=== PATIENT | female | born 1975 | race Caucasian/White ===

== ENCOUNTER 2017-11-20 14:46 | Emergency (ER) | payer OTHER ==
--- NOTE | 2017-11-20 15:06 | ERPHSYRPT ---
- History of Present Illness Time Seen by Provider: 11/20/17 14:57 Source: patient Exam Limitations: no limitations Physician History: 42-year-old white female with history of chronic back pain and neuropathy arrives with complaint of no bowel movement for 2 weeks. She has not had any vomiting she states she has been nauseous no melena no hematochezia no fevers. Past medical history includes chronic back pain, neuropathy. Past surgical history includes appendectomy, partial hysterectomy, C-sections. Patient states she has been on Vicodin for dental pain. Timing/Duration: week(s) (2 weeks) Severity: moderate Modifying Factors: Improves With: medication (patient is on Vicodin) Associated Symptoms: nausea, other (Constipation), No vomiting, No abdominal pain, No shortness of breath, No heartburn, No diaphoresis, No cough, No chills , No chest pain, No fever, No headaches, No loss of appetite, No malaise, No rash, No syncope, No seizure, No weakness Allergies/Adverse Reactions: No Known Drug Allergies Allergy (Unverified 11/20/17 15:14) Home Medications: Baclofen [Baclofen] 10 mg PO TID 11/20/17 [History] Bupropion HCl [Bupropion HCl Sr] 150 mg PO DAILY 11/20/17 [History] Gabapentin [Gabapentin] 300 mg PO TID 11/20/17 [History] Hydrocodone/Acetaminophen [Hydrocodone-Acetamin 5-325 mg] 5 mg PO Q6HPRN PRN 09/04 [History] Naratriptan HCl [Amerge] 2.5 mg PO UD 11/20/17 [History] Sulfamethoxazole/Trimethoprim [Sulfamethoxazole-Tmp Ds Tablet] 1 ea PO BID 11/20 [History] - Review of Systems Constitutional: No Fever, No Chills Eyes: No Symptoms Ears, Nose, & Throat: No Symptoms Respiratory: No Cough, No Dyspnea Cardiac: No Chest Pain, No Edema, No Syncope Abdominal/Gastrointestinal: Abdominal Pain, Nausea, Constipation, No Vomiting, No Diarrhea (Will visual), No Hematemesis, No Hematochezia, No Melena, No Dysphagia, No Appetite Changes Genitourinary Symptoms: No Dysuria Musculoskeletal: No Back Pain, No Neck Pain Skin: No No Symptoms, No Rash Neurological: No Dizziness, No Focal Weakness, No Sensory Changes Psychological: No Symptoms Endocrine: No Symptoms All Other Systems: Reviewed and Negative - Female History Hx Now: No - Nursing Vital Signs Nursing Vital Signs: Initial Vital Signs Temperature 98.4 F 11/20/17 14:59 Pulse Rate 93 H 11/20/17 14:59 Respiratory Rate 16 11/20/17 14:59 Blood Pressure 135/86 11/20/17 14:59 O2 Sat by Pulse Oximetry 98 11/20/17 14:59 Pain Scale Pain Intensity 0 - Physical Exam General Appearance: no apparent distress, alert Eye Exam: PERRL/EOMI, eyes nml inspection Ears, Nose, Throat Exam: normal ENT inspection, TMs normal, pharynx normal, moist mucous membranes Neck Exam: normal inspection, non-tender, supple, full range of motion Respiratory Exam: normal breath sounds, lungs clear, No respiratory distress Cardiovascular Exam: regular rate/rhythm, normal heart sounds, normal peripheral pulses Gastrointestinal/Abdomen Exam: soft, normal bowel sounds, distention, No tenderness, No mass, No guarding, No ecchymosis, No pulsatile mass, No rebound, No hernia, No hepatomegaly, No organomegaly, No splenomegaly Back Exam: normal inspection, normal range of motion, No CVA tenderness, No vertebral tenderness Extremity Exam: normal inspection, normal range of motion, pelvis stable Neurologic Exam: alert, oriented x 3, cooperative, home stager II-XII nml as tested, normal mood/affect, nml cerebellar function, nml station & gait, sensation nml, No motor deficits Skin Exam: normal color, warm, dry, No rash Lymphatic Exam: No adenopathy - Course Nursing assessment & vital signs reviewed: Yes - Radiology Exams Abdomen X-ray Interpretation: Interpreted by me (3 view abdomen: normal chest x ray, non obstructive bowel gas pattern, moderate fecal stasis.) Ordered Tests: Active Orders 24 hr Category Date Time Status OBSTR/ACUTE ABDOMEN SERIES Stat Exams 11/20/17 15:02 Taken AMYLASE Stat Lab 11/20/17 15:15 Completed CBC W DIFF Stat Lab 11/20/17 15:15 Completed CMP Stat Lab 11/20/17 15:15 Completed LIPASE Stat Lab 11/20/17 15:15 Completed Lab/Rad Data: Laboratory Result Diagrams 11/20/17 15:15 11/20/17 15:15 Laboratory Results 11/20/17 11/20/17 Range/Units 15:15 15:15 WBC 9.2 (4.0-10.5) K/mm3 RBC 4.71 (4.1-5.4) M/mm3 Hgb 15.3 (12.0-16.0) gm/dl Hct 46.0 (35-47) % MCV 97.7 (78-100) fl MCH 32.5 H (26-32) pg MCHC 33.3 (32-36) g/dl RDW 13.5 (11.5-14.0) % Plt Count 291 (150-450) K/mm3 MPV 11.6 H (6-9.5) fl Gran % 67.2 H (36.0-66.0) % Eos # (Auto) 0.26 (0-0.5) Absolute Lymphs (auto) 2.04 (1.0-4.6) Absolute Monos (auto) 0.71 (0.0-1.3) Lymphocytes % 22.1 L (24.0-44.0) % Monocytes % 7.7 (0.0-12.0) % Eosinophils % 2.8 (0.00-5.0) % Basophils % 0.2 (0.0-0.4) % Absolute Granulocytes 6.18 (1.4-6.9) Basophils # 0.02 (0-0.4) Sodium 137 (137-145) mmol/L Potassium 4.6 (3.5-5.1) mmol/L Chloride 103 (98-107) mmol/L Carbon Dioxide 27 (22-30) mmol/L Anion Gap 12.2 (5-15) MEQ/L BUN 12 (7-17) mg/dL Creatinine 0.86 (0.52-1.04) mg/dL Estimated GFR > 60.0 ML/MIN Glucose 98 (74-106) mg/dL Calcium 9.8 (8.4-10.2) mg/dL Total Bilirubin 0.60 (0.2-1.3) mg/dL AST 23 (14-36) U/L ALT 24 (0-35) U/L Alkaline Phosphatase 64 (38-126) U/L Serum Total Protein 7.9 (6.3-8.2) g/dL Albumin 4.5 (3.5-5.0) g/dL Amylase 50 (30-110) U/L Lipase 58 (23-300) U/L - Progress Progress: improved Progress Note: 11/20/17 16:54 42-year-old white female arrives with complaint no stool for 2 weeks. She does state she has chronic neuropathy she also states that she has recently taken Vicodin secondary to dental work. On physical examination the patient's abdomen is distended but soft there are positive bowel sounds. Rectal examination there is no palpable stool and no stool is obtained. Patient's mother tried giving the patient a fleets yesterday with no results. Abdominal series show normal chest and nonobstructive bowel pattern there is a moderate fecal stasis. Patient's CBC is essentially normal with a hemoglobin 15.3 hematocrit 46.0 white count 9.2 chemistry is within normal limits. Will plan to place patient on room air lacks one scoop in 8 ounces of water orally daily Will give patient a prescription for Dulcolax suppositories. Will place patient on clear fluids for 24-48 hours. Patient will need follow-up with her family doctor. - Departure Time of Disposition: 16:56 Departure Disposition: Home Clinical Impression: Constipation Qualifiers: Constipation type: unspecified constipation type Qualified Code(s): K59.00 - Constipation, unspecified Condition: Fair Critical Care Time: No Referrals: LIONEL AVILA [Primary Care Provider] - Instructions: Constipation, Adult (DC) Additional Instructions: Return home. Plenty of fluids clear fluids only 24-48 hours if abdominal pain or constipation. Miralax one scoop in 8 ounces of water orally daily. Dulcolax suppository one per rectum as needed for no stool in 48 hours. Follow-up with your family doctor. Return for acute distress or for severe symptoms.
[2017-11-20 15:22] LABS: BASOPHIL % 0.2 % (0.0-0.4); Basophil (Absolute #) 0.02 (0-0.4); Eosinophil % 2.8 % (0.00-5.0); Eosinophil (Absolute #) 0.26 (0-0.5); Granulocyte Absolute (ANC) 6.18 (1.4-6.9); Granulocytes % 67.2 % (36.0-66.0); Hemoglobin 15.3 gm/dl (12.0-16.0); Lymphocyte (Absolute #) 2.04 (1.0-4.6); Lymphocytes % 22.1 % (24.0-44.0); Mean Cell Volume 97.7 fl (78-100); Mean Corpuscular Hemoglobin 32.5 pg (26-32); Mean Corpuscular Hgb Concent. 33.3 g/dl (32-36); Mean Platelet Volume 11.6 fl (6-9.5); Monocyte (Absolute #) 0.71 (0.0-1.3); Monocytes % 7.7 % (0.0-12.0); Platelet Count 291 K/mm3 (150-450); Red Blood Count 4.71 M/mm3 (4.1-5.4); Red Cell Distribution Width 13.5 % (11.5-14.0); White Blood Count 9.2 K/mm3 (4.0-10.5)
[2017-11-20 15:35] LABS: ALBUMIN 4.5 g/dL (3.5-5.0); ALKALINE PHOSPHATASE 64 U/L (38-126); AMYLASE 50 U/L (30-110); ANION GAP 12.2 MEQ/L (5-15); BLOOD UREA NITROGEN 12 mg/dL (7-17); CHLORIDE 103 mmol/L (98-107); Calcium 9.8 mg/dL (8.4-10.2); Carbon Dioxide 27 mmol/L (22-30); Creatinine 1 0.86 mg/dL (0.52-1.04); Glucose 98 mg/dL (74-106); LIPASE 58 U/L (23-300); Potassium 4.6 mmol/L (3.5-5.1); SGOT/AST 23 U/L (14-36); SGPT/ALT 24 U/L (0-35); SODIUM 137 mmol/L (137-145); Total Protein 7.9 g/dL (6.3-8.2)
[2017-11-20 16:10] VITALS: BP 114/77; PULSE 77; O2SAT 99
--- NOTE | 2017-11-20 20:05 | XRAY ---
Indication: Constipation 2 weeks. Comparison: None 2 views of the abdomen nonacute and nonobstructed with mild diffuse scattered colonic fecal debris throughout and surgical clips projecting over the right pelvic inlet. Remaining solid organs and osseous structures are unremarkable. Single PA chest demonstrates normal heart, lungs, and bony thorax. Impression: Fecal stasis without obstruction. Normal 1 view chest.
== END 2017-11-20 17:14 | disposition home or self-care (01) ==
LOC: ED 14:46
DX: K59.00 Constipation, unspecified (principal); R11.0 Nausea; Z79.899 Other long term (current) drug therapy
CPT/HCPCS: 36415; 74022; 80053; 82150; 83690; 85025; 99284

== ENCOUNTER 2018-08-13 19:10 | Emergency (ER) | payer OTHER ==
[2018-08-13 19:25] VITALS: BP 150/101
[2018-08-13] MEDS ORDERED: Eye-Stream Solution ONE (19:28)
[2018-08-13] MEDS ORDERED: Fluor-I-Strip/Ful-Flo OP ONE ×2 (19:28→19:40)
[2018-08-13] MEDS ORDERED: TETRACAINE 0.5% STERI-UNIT SOL OP ONE (19:32)
[2018-08-13] MEDS ORDERED: Eye-Stream Solution OP ONE (19:39)
[2018-08-13] MEDS ORDERED: TETRACAINE 0.5% STERI-UNIT SOL OP STA (19:41)
[2018-08-13] MEDS ORDERED: Ciloxan OPHTH OP ONE (20:04)
[2018-08-13] MEDS ORDERED: Ciloxan OPHTH ONE (20:06)
[2018-08-13 20:56] VITALS: PULSE 92; O2SAT 98
--- NOTE | 2018-08-13 21:36 | ERPHSYRPT ---
- History of Present Illness Source: patient Exam Limitations: no limitations Patient Subjective Stated Complaint: pt is alert and oriented. pt is ambulatory with a steady gait. pt comes in with complain of foreign body in left eye. pt states she was out at her dog pin and the wind blew something in her eye. pt states she is unaware of what it was. I am unable to visulize any foreign body but the left eye is very red and irritated. pt left eye is watering and pt is unable to fully open eye. visual acuity: both 20/30 left 20/30 right 20/30. Triage Nursing Assessment: see above Physician History: Pt is a 43 y/o female that presented to the ER with eye pain. Pt states, she was walking the dog today, and the wind blew something in her L eye, and now she has severe pain. Pt did scratch her eye, as that made it feel better. Now her pain is intense. Timing/Duration: today Location: left eye Severity: moderate Apparent Injury: no Associated Symptoms: pain, burning, foreign body sensation Visual Assistive Devices: None Chemical Exposure: No Trauma: No Allergies/Adverse Reactions: No Known Drug Allergies Allergy (Unverified 11/20/17 15:14) Home Medications: Sulfamethoxazole/Trimethoprim [Sulfamethoxazole-Tmp Ds Tablet] 1 ea PO BID 11/20 [History] Hx Tetanus, Diphtheria Vaccination/Date Given: No Hx Influenza Vaccination/Date Given: No Hx Pneumococcal Vaccination/Date Given: No Immunizations Up to Date: Yes - Review of Systems Constitutional: No Fever, No Chills Eyes: Eye Pain, Eye Redness, Tearing, Foreign Body Sensation Ears, Nose, & Throat: No Symptoms Respiratory: No Cough, No Dyspnea - Past Medical History Pertinent Past Medical History: Yes Neurological History: Migraines, Peripheral Neuropathy - Past Surgical History Past Surgical History: Yes Gastrointestinal: Appendectomy Female Surgical History: Hysterectomy, Section - Social History Smoking Status: Current every day smoker How long have you smoked: 20 years Exposure to second hand smoke: No Drug Use: none Patient Lives Alone: No - Female History Hx Now: No - Nursing Vital Signs Nursing Vital Signs: Initial Vital Signs Temperature 97.5 F 08/13/18 19:18 Pulse Rate 101 H 08/13/18 19:18 Respiratory Rate 18 08/13/18 19:18 Blood Pressure 150/101 08/13/18 19:18 O2 Sat by Pulse Oximetry 99 08/13/18 19:18 Pain Scale Pain Intensity 8 - Physical Exam General Appearance: moderate distress Vision Acuity Degree Evaluation Phase: Uncorrected Vision Acuity Right Eye: 20/30 Vision Acuity Left Eye: 20/30 Eye Exam: right eye: normal inspection, PERRL, EOMI, left eye: conjunctival inflammation, erythema Ears, Nose, Throat Exam: normal ENT inspection SpO2: 98 - Course Nursing assessment & vital signs reviewed: Yes Ordered Tests: Medication Summary Discontinued Medications Generic Name Dose Route Start Last Admin Trade Name Stepan PRN Reason Stop Dose Admin Ciprofloxacin 2.5 ml 08/13/18 20:04 08/13/18 20:09 Ciloxan Ophth OP 08/13/18 20:05 2.5 ml STAT ONE Administration Ciprofloxacin Confirm 08/13/18 20:06 Ciloxan Ophth Administered 08/13/18 20:07 Dose 2.5 ml .ROUTE .STK-MED ONE Eye Irrigation Solution Confirm 08/13/18 19:28 Eye-Stream Solution Administered 08/13/18 19:29 Dose 30 ml .ROUTE .STK-MED ONE Eye Irrigation Solution 15 ml 08/13/18 19:39 08/13/18 19:42 Eye-Stream Solution OP 08/13/18 19:40 15 ml STAT ONE Administration Fluorescein Sodium Confirm 08/13/18 19:28 Tqfjw-S-Qsyzx/Ful-Garland Administered 08/13/18 19:29 Dose 1 mg OP .STK-MED ONE Fluorescein Sodium 1 mg 08/13/18 19:40 08/13/18 19:43 Aktpv-P-Qbmwd/Ful-Garland OP 08/13/18 19:41 1 mg STAT ONE Administration Tetracaine HCl Confirm 08/13/18 19:32 Tetracaine 0.5% Steri-Unit Tg Administered 08/13/18 19:33 Dose 4 ml OP .STK-MED ONE Tetracaine HCl 4 ml 08/13/18 19:41 08/13/18 19:43 Tetracaine 0.5% Steri-Unit Tg OP 08/13/18 19:42 4 ml STAT STA Administration - Progress Progress: unchanged Progress Note: 08/13/18 21:34 I checked pt's eye and there was no foreign body or laceration or abrasion seen. The eye was washed with sterile water. I did place tetracaine eye drops in the L eye. When the pain improved, Cipro drops were placed. Before end of therapy, pt decided to leave AMA. I did advise her that she will need eye drops and f/u, but pt decided not to stay, and signed AMA papers. Will see patient in: office Counseled pt/family regarding: need for follow-up - Departure Time of Disposition: 21:36 Departure Disposition: AMA Clinical Impression: Left eye injury Condition: Stable Critical Care Time: No Referrals: COLBY ROMAN MD [Primary Care Provider] -
== END 2018-08-13 20:55 | disposition home or self-care (01) ==
LOC: ED 19:10
DX: S05.02XA Injury of conjunctiva and corneal abrasion without foreign body, left eye, initial encounter (principal); W22.8XXA Striking against or struck by other objects, initial encounter
CPT/HCPCS: 99283; A9270-GY